=== PATIENT | female | born 1945 | race Caucasian/White ===

== ENCOUNTER 2017-04-22 14:51 | Emergency (ER) | payer OTHER, BC ==
[~2017-04-22] VITALS: Ht 157.5 cm; Wt 60.1 kg
[~2017-04-22 14:51] MED LIST: ALPRAZOLAM1 MG PO; ANTIVERT25 MG PO; ASPIR-LOW81 MG PO; ASPIRIN-DIPYRI1 EACH PO; ATORVASTATIN CA20 MG PO; DAILY VALUE1 EACH PO; FISH OIL 1,2001 EAC5 PO; FLUOXETINE HCL20 MG PO; IBUPROFEN800 MG PO; NORTRIPTYLINE H10 MG PO; QUINAPRIL HCL40 MG PO; VITAMIN C1000 MG PO; VITAMIN E1000 UNI1 PO
[2017-04-22 16:10] LABS: EOSINOPHIL (%) 0.2 % (0-5); IMMATURE GRANULOCYTE (%) 0.6 % (0.0-0.7); IMMATURE GRANULOCYTE COUNT 0.1 K/uL; LYMPHOCYTE COUNT 2.7 K/uL (1.0-2.8); MCH 31.4 PG (29.0-34.0); MCHC 33.2 G/DL (30.0-36.0); MCV 94.4 FL (83-99); MEAN PLAT.VOLUME 9.2 uM^3 (9.5-12.4); NEUTROPHIL (%) 77.2 % (45-76); PLATELET COUNT 211 K/uL (156-360); RBC DIS.WIDTH-CV 12.2 % (11.8-14.6); RBC DIS.WIDTH-SD 42.5 % (39-53); RED BLOOD COUNT 3.92 M/uL (3.80-5.20); WHITE BLOOD COUNT 16.8 K/uL (4.1-10.2)
[2017-04-22 16:20] LABS: CHLORIDE 102 mEq/L (99-109); POTASSIUM 3.9 mEq/L (3.7-5.4); SODIUM 139 mEq/L (136-147)
[2017-04-22 16:22] LABS: GLUCOSE 101 mg/dL (70-99)
[2017-04-22 16:23] LABS: ANION GAP 10 MEQ/L (2-14)
[2017-04-22 16:24] LABS: TOTAL BILIRUBIN 0.9 mg/dL (0.0-1.0)
[2017-04-22 16:25] LABS: ALKALINE PHOSPHATASE 86 IU/L (3-129)
[2017-04-22 16:26] LABS: GFR ESTIMATE (CALCULATED) > 59 mL/min/
[2017-04-22 16:27] LABS: UREA NITROGEN (BUN) 10 mg/dL (9-23)
[2017-04-22 16:48] LABS: ADD MIUA? YES; BILIRUBIN NEGATIVE; BLOOD NEGATIVE; COLOR AMBER ((YELLOW)); GLUCOSE (STRIP) NEGATIVE; KETONES 20; LEUKOCYTES TRACE; NITRITE NEGATIVE; PROTEIN (STRIP) 100; SPECIFIC GRAVITY 1.021 (1.000-1.030)
[2017-04-22 17:09] LABS: AMORPHOUS URATES CRYSTALS 1+; BACTERIA NONE SEEN /HPF; CASTS NONE SEEN /LPF; CRYSTALS PRESENT; EPITHELIAL CELLS 1+ /HPF; MUCUS 1+ /LPF; RED BLOOD CELLS RARE /HPF (0-5); UCUL ADDED? NO; WHITE BLOOD CELLS 0-5 /HPF (0-5)
[2017-04-22] MEDS ORDERED: ULTRAM50 MG PO (20:32)
[2017-04-22 20:53] VITALS: BP 143/72
== END 2017-04-22 21:00 | disposition home or self-care (01) ==
LOC: EME 14:51
PROVIDERS: Emergency Medicine
DX: M54.5 Low back pain (principal); R10.84 Generalized abdominal pain; R19.09 Other intra-abdominal and pelvic swelling, mass and lump; I10 Essential (primary) hypertension; Z90.49 Acquired absence of other specified parts of digestive tract; Z79.82 Long term (current) use of aspirin; Z79.02 Long term (current) use of antithrombotics/antiplatelets
CPT/HCPCS: 74176; 80053; 81003; 85025; 99281; 99285; J7030